=== PATIENT | male | born 1960 | race Hispanic/Latino ===

== ENCOUNTER → 2023-11-16 | Day surgery (SDC) | payer OTHER ==
[2023-11-12 14:18] LABS: BASOPHILS # (AUTO) 0.1 (0.0-0.1); BASOPHILS % 0.6 % (0.0-1.0); EOSINOPHILS # (AUTO) 0.3 (0.0-0.4); EOSINOPHILS % 2.8 % (0.0-6.0); HEMATOCRIT 39.8 % (38.2-49.6); LYMPHOCYTES # (AUTO) 2.4 (1.0-3.2); LYMPHOCYTES % 26.4 % (18.0-39.1); MEAN CORPUSCULAR HEMOGLOBIN 28.5 pg (28-32); MEAN CORPUSCULAR HGB CONC 32.7 g/dL (31-35); MEAN CORPUSCULAR VOLUME 87.3 fL (81-99); MONOCYTES # (AUTO) 0.5 (0.2-0.8); MONOCYTES % 5.9 % (4.4-11.3); NEUTROPHILS # (AUTO) 5.8 (2.1-6.9); NEUTROPHILS % 63.9 % (38.7-80.0); PLATELET COUNT 210 x10e3/uL (140-360); RED BLOOD COUNT 4.56 x10e6/uL (4.3-5.7); RED CELL DISTRIBUTION WIDTH 13.8 % (11.7-14.4); WHITE BLOOD COUNT 9.04 x10e3/uL (4.8-10.8)
[~2023-11-16] MED LIST: AMLODIPINE-VAL1 EAC3 PO; ATORVASTATIN CA20 MG PO; B COMPLEX1 EACH PO; FENTANYL CITRATE/PF 100MCG/2 ML INJ ONE; FOLIC ACID0.4 MG PO; GLUCAGON FOR INJ 1 MG VIAL ONE; HYDROCHLOROTHIA25 MG PO; IRON PO; LACTATED RINGER'S 1,000 ML ONE; LIDOCAINE HCL 2% LOCAL INJ 5 ML SDV VIAL INJ ONE; METFORMIN HCL500 MG PO; METOPROLOL SUCC25 MG PO; MIDAZOLAM HCL 2 MG/2 ML VIAL ONE; MONTELUKAST SOD10 MG PO; NEURONTIN300 MG PO; NOVOLIN N100 UNIT/1 SQ; PROPOFOL IV EMULSION 10 MG/ML 20 ML VIAL ONE; VICTOZA 2-0.6 MG/0.1 SQ; VITAMIN D250 MCG PO
[2023-11-16 11:45] VITALS: BP 154/89; PULSE 69; RESP 16; TEMP 97.4; O2SAT 97
== END | disposition home or self-care (01) ==
LOC: OR 07:23
PROVIDERS: ATTEND Internal Medicine Gastroenterology
DX: K29.50 Unspecified chronic gastritis without bleeding (principal); D12.2 Benign neoplasm of ascending colon; K64.8 Other hemorrhoids; K44.9 Diaphragmatic hernia without obstruction or gangrene; R13.10 Dysphagia, unspecified; C64.2 Malignant neoplasm of left kidney, except renal pelvis; I10 Essential (primary) hypertension; E78.5 Hyperlipidemia, unspecified; I49.9 Cardiac arrhythmia, unspecified; E11.9 Type 2 diabetes mellitus without complications; Z01.810 Encounter for preprocedural cardiovascular examination; Z01.812 Encounter for preprocedural laboratory examination; Z79.84 Long term (current) use of oral hypoglycemic drugs; Z79.4 Long term (current) use of insulin; Z79.85 Long-term (current) use of injectable non-insulin antidiabetic drugs; Z79.899 Other long term (current) drug therapy; Z86.19 Personal history of other infectious and parasitic diseases
CPT/HCPCS: 36415 ×2; 43239; 45385; 82948; 85025; 88305; 88342; 93005; J1610; J2001; J2250; J2704; J3010; J7121

== ENCOUNTER → 2025-04-27 | Outpatient (REF) | payer MEDICARE, OTHER ==
[~2025-04-27] MED LIST changes: -FENTANYL CITRATE/PF 100MCG/2 ML INJ ONE; -GLUCAGON FOR INJ 1 MG VIAL ONE; -LACTATED RINGER'S 1,000 ML ONE; -LIDOCAINE HCL 2% LOCAL INJ 5 ML SDV VIAL INJ ONE; -MIDAZOLAM HCL 2 MG/2 ML VIAL ONE; -PROPOFOL IV EMULSION 10 MG/ML 20 ML VIAL ONE
== END ==
LOC: US 09:37
PROVIDERS: ATTEND Nurse Practitioner Family
DX: Z86.19 Personal history of other infectious and parasitic diseases (principal)
CPT/HCPCS: 76705